=== PATIENT | male | born 1955 | race Caucasian/White ===

== ENCOUNTER 2022-04-12 06:55 | Emergency (ER) | payer MEDICARE ==
[~2022-04-12] VITALS: Ht 175.3 cm; Wt 111.1 kg
[2022-04-12 08:00] LABS: CLARITY,URINE TURBID (CLEAR); COLOR,URINE YELLOW (YELLOW); LEUKOCYTE ESTERASE ,URINE NEGATIVE (NEGATIVE); NITRITE,URINE NEGATIVE (NEGATIVE)
[2022-04-12 08:01] LABS: KETONES,URINE 1+ (NEGATIVE); PROTEIN,URINE DIPSTICK 2+ (NEGATIVE); URINE UROBILINOGEN 1 mg/dL (0.2 - 1)
[2022-04-12 08:07] LABS: BACTERIA,URINE MANY /HPF; EPITHELIAL CELLS,URINE FEW /LPF; RBC,URINE 0-5 /HPF (0-5); WBC,URINE (MAN) 0-5 /HPF (0-5)
[2022-04-12 08:08] LABS: AMORPHOUS SEDIMENT,URINE FEW (FEW)
[2022-04-12 08:45] VITALS: BP 155/62
== END 2022-04-12 08:45 | disposition home or self-care (01) ==
LOC: ER 06:57
DX: R50.9 Fever, unspecified (principal); J32.9 Chronic sinusitis, unspecified; I10 Essential (primary) hypertension; E11.9 Type 2 diabetes mellitus without complications; E78.5 Hyperlipidemia, unspecified; K21.9 Gastro-esophageal reflux disease without esophagitis; Z20.822 Contact with and (suspected) exposure to COVID-19
CPT/HCPCS: 81001; 87086; 99282; U0002

== ENCOUNTER 2022-05-15 18:30 | Emergency (ER) | payer MEDICARE ==
[~2022-05-15] VITALS: Ht 175.3 cm; Wt 106.6 kg
[2022-05-15] MEDS ORDERED: ONDANSETRON HCL INJ 2MG/ML 2ML 2 MG/ML VIAL IV STA (19:50)
[2022-05-15] MEDS ORDERED: ASPIRIN 325 MG TAB PO ONE (20:00)
[2022-05-15 20:02] LABS: BASOPHILS # (AUTO) 0.1 (0.0-0.1); BASOPHILS % 0.4 % (0.0-1.0); EOSINOPHILS # (AUTO) 0.3 (0.0-0.4); EOSINOPHILS % 2.7 % (0.0-6.0); HEMATOCRIT 32.2 % (38.2-49.6); HEMOGLOBIN 10.9 g/dL (14.0-18.0); LYMPHOCYTES # (AUTO) 2.6 (1.0-3.2); LYMPHOCYTES % 21.8 % (18.0-39.1); MEAN CORPUSCULAR HEMOGLOBIN 29.5 pg (28-32); MEAN CORPUSCULAR HGB CONC 33.9 g/dL (31-35); MEAN CORPUSCULAR VOLUME 87.3 fL (81-99); MONOCYTES # (AUTO) 1.2 (0.2-0.8); MONOCYTES % 10.3 % (4.4-11.3); NEUTROPHILS # (AUTO) 7.2 (2.1-6.9); NEUTROPHILS % 60.8 % (38.7-80.0); PLATELET COUNT 134 x10e3/uL (140-360); RED BLOOD COUNT 3.69 x10e6/uL (4.3-5.7); RED CELL DISTRIBUTION WIDTH 13.2 % (11.7-14.4)
[2022-05-15 20:12] LABS: INR 1.1; PROTHROMBIN TIME 14.7 seconds (11.9-14.5)
[2022-05-15 20:13] LABS: PARTIAL THROMBOPLASTIN TIME 30.3 seconds (23.8-35.5)
[2022-05-15 20:19] LABS: ALBUMIN/GLOBULIN RATIO 1.4 (0.8-2.0); ANION GAP 16.7 mmol/L (8-16); CALCIUM 9.3 mg/dL (8.4-10.2); CREATININE, SERUM 1.06 mg/dL (0.72-1.25); POTASSIUM 3.7 mmol/L (3.5-5.1)
[2022-05-15] MEDS ORDERED: IOPAMIDOL 370 MG/ML 100 ML INFUS..BTL INJ ONE (21:03)
[2022-05-15] MEDS ORDERED: SODIUM CHLORIDE 0.9% 100 ML ONE (21:03)
[2022-05-16] MEDS ORDERED: ASPIRIN 325 MG TAB ONE (00:07)
[2022-05-16 01:23] VITALS: BP 165/71
== END 2022-05-16 01:30 | disposition other institution (70) ==
LOC: ER 18:33
DX: R07.9 Chest pain, unspecified (principal); M54.50 Low back pain, unspecified; Z20.822 Contact with and (suspected) exposure to COVID-19; R94.31 Abnormal electrocardiogram [ECG] [EKG]
CPT/HCPCS: 36415; 71275; 74174; 80053; 84484; 85025; 85610; 85730; 93005; 99284; J2405; J7050; Q9967; U0002

== ENCOUNTER 2022-06-12 06:27 | Observation (INO) | payer MEDICARE ==
[2022-06-09 10:57] LABS: BASOPHILS % 0.7 % (0.0-1.0); EOSINOPHILS # (AUTO) 0.1 (0.0-0.4); EOSINOPHILS % 2.3 % (0.0-6.0); HEMATOCRIT 36.1 % (38.2-49.6); HEMOGLOBIN 12.3 g/dL (14.0-18.0); LYMPHOCYTES # (AUTO) 1.5 (1.0-3.2); LYMPHOCYTES % 27.6 % (18.0-39.1); MEAN CORPUSCULAR HEMOGLOBIN 30.2 pg (28-32); MEAN CORPUSCULAR HGB CONC 34.1 g/dL (31-35); MEAN CORPUSCULAR VOLUME 88.7 fL (81-99); MONOCYTES # (AUTO) 0.5 (0.2-0.8); MONOCYTES % 8.4 % (4.4-11.3); NEUTROPHILS # (AUTO) 3.4 (2.1-6.9); NEUTROPHILS % 60.8 % (38.7-80.0); PLATELET COUNT 205 x10e3/uL (140-360); RED BLOOD COUNT 4.07 x10e6/uL (4.3-5.7); RED CELL DISTRIBUTION WIDTH 14.9 % (11.7-14.4)
[2022-06-09 11:13] LABS: ANION GAP 15.1 mmol/L (8-16); BLOOD UREA NITROGEN 22 mg/dL (7-26); BUN/CREATININE RATIO 22 (6-25); CALCIUM 9.4 mg/dL (8.4-10.2); CARBON DIOXIDE 25 mmol/L (22-29); CHLORIDE 103 mmol/L (98-107); CREATININE, SERUM 1.01 mg/dL (0.72-1.25); GLUCOSE 187 mg/dL (74-118); POTASSIUM 4.1 mmol/L (3.5-5.1); SODIUM 139 mmol/L (136-145)
[~2022-06-12 06:27] MED LIST: AMLODIPINE BESY10 MG PO; ASPIRIN81 MG PO; ATENOLOL25 MG PO; BENICAR40 MG PO; CRESTOR10 MG PO; GLIMEPIRIDE2 MG PO; HYDROCHLOROTHIA25 MG PO; IBUPROFEN IB200 MG PO; METFORMIN HCL500 MG PO; MULTIVITAMIN1 EACH PO; NIACIN500 M2 PO; OMEPRAZOLE40 MG PO; OS-CAL 500+D T1 EACH PO; TRAZODONE HCL50 MG PO; TRIPLE OMEGA C400 MG PO
[2022-06-12] MEDS ORDERED: ACETAMINOPHEN 1000 MG/100 ML 100 ML IV ONE (06:36)
[2022-06-12] MEDS ORDERED: LACTATED RINGER'S 1,000 ML ONE (06:55)
[2022-06-12] MEDS ORDERED: CELECOXIB 200 MG CAP ONE (07:03)
[2022-06-12] MEDS ORDERED: DEXAMETHASONE SOD PHOS 10 MG/1 ML VIAL ONE ×2 (07:04→11:55)
[2022-06-12] MEDS ORDERED: GABAPENTIN 300 MG CAP ONE (07:04)
[2022-06-12] MEDS ORDERED: CEFAZOLIN SODIUM 2 GM ONE (07:06)
[2022-06-12] MEDS ORDERED: ROPIVACAINE 246.25 MG, EPINEPHRINE HCL 1:1000 1ML 0.5 MG, CLONIDINE HCL 0.08 MG, KETORO... INJ ONE ×5 (07:30)
[2022-06-12] MEDS ORDERED: Vancomycin IV 1,000 MG ONE (07:50)
[2022-06-12] MEDS ORDERED: TRANEXAMIC ACID 20 ML ONE (07:50)
[2022-06-12] MEDS ORDERED: SODIUM CHLORIDE 0.9% 500ML 500 ML ONE (07:50)
[2022-06-12] MEDS ORDERED: DIPHENHYDRAMINE HCL INJ 50 MG/ML VIAL IV PRN (10:15)
[2022-06-12] MEDS ORDERED: ONDANSETRON HCL INJ 2MG/ML 2ML 2 MG/ML VIAL IV PRN (10:15)
[2022-06-12] MEDS ORDERED: DOCUSATE SODIUM 100 MG CAP PO PRN (10:15)
[2022-06-12] MEDS ORDERED: HYDROCODONE/APAP 5MG-325MG TAB PO PRN (10:15)
[2022-06-12] MEDS: FENTANYL CITRATE/PF 100MCG/2 ML INJ ONE ×2 (10:58→11:10)
[2022-06-12] MEDS ORDERED: SEVOFLURANE INHAL SOLN 250 ML PEN BTL ONE (11:49)
[2022-06-12] MEDS ORDERED: KETOROLAC TROMETHAMINE 30 MG/ML VIAL ONE (11:49)
[2022-06-12] MEDS ORDERED: LIDOCAINE HCL 2% LOCAL INJ 5 ML SDV VIAL INJ ONE (11:49)
[2022-06-12] MEDS ORDERED: POVIDONE IODINE 0.05% 0.05 % ML PO ONE (11:49)
[2022-06-12] MEDS ORDERED: EPHEDRINE SULFATE INJ 50 MG/ML VIAL ONE (11:49)
[2022-06-12] MEDS ORDERED: DEXAMETHASONE SOD PHOS INJ 4 MG/ML SDV ONE (11:49)
[2022-06-12] MEDS ORDERED: PROPOFOL IV EMULSION 10 MG/ML 20 ML VIAL ONE (11:49)
[2022-06-12] MEDS ORDERED: ONDANSETRON HCL INJ 2MG/ML 2ML 2 MG/ML VIAL ONE (11:49)
[2022-06-12] MEDS ORDERED: ROPIVACAINE 0.5% 5 MG/ML 30 ML SDV ONE (11:55)
[2022-06-12] MEDS ORDERED: FENTANYL CITRATE/PF 100MCG/2 ML INJ ONE (12:05)
[2022-06-12] MEDS ORDERED: MIDAZOLAM HCL 2 MG/2 ML VIAL ONE (12:05)
[2022-06-12] MEDS ORDERED: HYDROCODONE/APAP 7.5MG-325MG 1 EA TAB ONE (12:14)
[2022-06-12] MEDS ORDERED: HYDROCODONE/APAP 7.5MG-325MG 1 EA TAB PO ONE (12:15)
[2022-06-12 14:05] VITALS: BP 136/63; PULSE 74; RESP 16; O2SAT 98
[2022-06-12] MEDS ORDERED: HYDROCODON-ACE1 EA12 PO (14:05)
[2022-06-12] MEDS ORDERED: SODIUM CHLORIDE 0.9% 1000ML 1,000 ML IV SCH (16:30)
[2022-06-12] MEDS ORDERED: CELECOXIB 200 MG CAP PO SCH (17:00)
[2022-06-12] MEDS ORDERED: ASPIRIN 325 MG TAB PO SCH (20:00)
[2022-06-13] MEDS ORDERED: ACETAMINOPHEN 1000 MG/100 ML IV PRN (10:15)
== END 2022-06-12 14:20 | disposition home health service (06) ==
LOC: OR 06:27 → PACU V 10:34
PROVIDERS: ADMIT Specialist; ATTEND Specialist
DX: M16.11 Unilateral primary osteoarthritis, right hip (principal); E11.9 Type 2 diabetes mellitus without complications; I10 Essential (primary) hypertension; E78.5 Hyperlipidemia, unspecified; K21.9 Gastro-esophageal reflux disease without esophagitis; Z01.812 Encounter for preprocedural laboratory examination; Z01.818 Encounter for other preprocedural examination; Z20.822 Contact with and (suspected) exposure to COVID-19; Z79.1 Long term (current) use of non-steroidal anti-inflammatories (NSAID); Z79.82 Long term (current) use of aspirin; Z79.84 Long term (current) use of oral hypoglycemic drugs; Z79.899 Other long term (current) drug therapy; Z68.35 Body mass index [BMI] 35.0-35.9, adult
CPT/HCPCS: 0223U; 27130; 36415 ×2; 71046; 72170; 80048; 82948; 85025; 86850; 86900; 86920; 97116 ×2; 97162; 97530; C1713 ×3; C1776 ×2; G0378; J0131; J0171; J1100 ×2; J1885; J2001; J2250; J2405; J2704; J2795; J3010; J3370; J7040; J7121